=== PATIENT | female | born 1965 | race Hispanic/Latino ===

== ENCOUNTER 2018-03-24 08:40 | Outpatient (CLI) | payer OTHER ==
--- NOTE | 2018-03-24 10:08 | ULT ---
LEFT BREAST ULTRASOUND: Date: 03/24/18 PROVIDED CLINICAL HISTORY: Left breast palpable abnormality/pain. FINDINGS: Limited sonographic interrogation of the left breast was performed in the region of patient palpable abnormality/pain. The sonographic appearance of the breast tissue in this region is normal. IMPRESSION: BIRADS Category 1 - Negative. Negative imaging findings should not preclude further evaluation of a clinically suspicious area. The patient is referred back to her clinician. POS: OFF
== END 2018-03-24 08:41 | disposition home or self-care (01) ==
LOC: BICMAMMO 08:40
PROVIDERS: ATTEND Family Medicine
DX: N63.20 Unspecified lump in the left breast, unspecified quadrant (principal)
CPT/HCPCS: 77066; G0279

== ENCOUNTER 2021-12-05 15:47 | Outpatient (CLI) | payer OTHER | END 2021-12-05 15:48 | disposition home or self-care (01) | LOC: BICRAD 15:47 | PROVIDERS: ATTEND Internal Medicine Rheumatology | DX: M47.816 Spondylosis without myelopathy or radiculopathy, lumbar region (principal); M43.16 Spondylolisthesis, lumbar region; M47.817 Spondylosis without myelopathy or radiculopathy, lumbosacral region; M43.17 Spondylolisthesis, lumbosacral region; M61.48 Other calcification of muscle, other site | CPT/HCPCS: 72100 ==

== ENCOUNTER 2023-02-19 13:49 | Outpatient (CLI) | payer OTHER | END 2023-02-19 13:50 | disposition home or self-care (01) | LOC: BICMAMMO 13:49 | PROVIDERS: ATTEND Family Medicine | DX: Z12.31 Encounter for screening mammogram for malignant neoplasm of breast (principal); Z13.820 Encounter for screening for osteoporosis; M85.89 Other specified disorders of bone density and structure, multiple sites | CPT/HCPCS: 77063; 77067; 77080 ==

== ENCOUNTER 2023-03-29 06:59 | Outpatient (CLI) | payer OTHER | END 2023-03-29 07:00 | disposition home or self-care (01) | LOC: BICULT 06:59 | PROVIDERS: ATTEND Family Medicine | DX: R10.9 Unspecified abdominal pain (principal) | CPT/HCPCS: 76700; 76856 ==